=== PATIENT | male | born 1980 | race Caucasian/White ===

== ENCOUNTER 2023-10-03 05:42 | Emergency (ER) | payer BC, SELFPAY ==
[2023-10-03] VITALS (10 sets, daily range): BP systolic 137–166; BP diastolic 85–111; BMI 37.4
--- NOTE | 2023-10-03 06:11 | EDRN ---
Pt woke with chest tightness and head pressure so he took his blood pressure and it was 165/113 which prompted this ED visit. Pt thinks he forgot his 10mg lisinopril last night. Pt took his morning 20mg lisinopril and prozac 40mg. Pt denies abd
pain, dizziness, weakness, visual disturbance, n/v, fever/chills. Pt says he has a cough occasionally.
--- NOTE | 2023-10-03 07:04 | ED.GENMED ---
History of Present Illness
<Denise Phillips MD, Resident - Last Filed: 10/03/23 12:09>
General
Chief Complaint: Blood Pressure Problem
Source: patient
Exam Limitations: none
Time Seen by Provider: 10/03/23 06:25
Nursing documentation reviewed up to this point in time: agreed with
History of Present Illness
History of Present Illness:
Patient reports SOB and mild chest tightness since this morning on his way to work. Lasted around 1 hour. Took BP at home and was ~160/110. Believes he did not take his lisinopril 10 mg last night but did take lisinopril 20 mg and Prozac 40 mg this
AM. Reports no headaches, LOC, change in vision, radiating pain, numbness or tingling. Does report mild pressure in head and chest, SOB and elevated HR.
If applicable-neuro sx onset
Onset of symptoms known: Yes
Date of onset of symptoms: 10/03/23
Past History
<Denise Phillips MD, Resident - Last Filed: 10/03/23 12:09>
Past History
ED Past Medical History: HTN and Psychiatric (anxiety)
Patient has exhibited threatening behavior?: No
Social History
Tobacco: Smoker
Employment: Employed
Review of Systems
<Denise Phillips MD, Resident - Last Filed: 10/03/23 12:09>
Review of Systems
Constitutional: Reports no symptoms
EENT: Reports no symptoms
Respiratory: Reports cough (mild, intermittent )
Cardiac: Reports other (mild chest tightness and SOB)
ABD/GI: Reports no symptoms
: Reports no symptoms
Musculoskeletal: Reports no symptoms
Skin: Reports no symptoms
Neurological: Reports no symptoms
Endocrine: Reports no symptoms
Hematologic/Lymphatic: Reports no symptoms
Psychiatric: Reports anxiety
Phy Exam
<Denise Phillips MD, Resident - Last Filed: 10/03/23 12:09>
General Physical Exam
General Presentation: well appearing and no apparent distress
General age: appears stated age
General Mental: alert
General Hydration: appears well hydrated
Eye Exam
Eye Exam: conjunctiva normal, visual acuity normal and visual rogel normal
Cardiovascular Exam
Cardiovascular Exam: regular rate/rhythm, no edema, no gallop, no JVD, no murmur and tachycardia
Heart Sounds: normal
Pulmonary Exam
Pulmonary Exam: lungs clear, no respiratory distress, no rales, chest non tender, no crackles, no rhonchi, no stridor, no wheezing and no cough
Skin Exam
Skin Exam: normal color
Psychiatric Exam
Psychiatric Exam: normal mood/affect and anxious
Scores
<Denise Phillips MD, Resident - Last Filed: 10/03/23 12:09>
Heart Score for Chest Pain Patients
STEMI patient?: No
History: Slightly or Non-Suspicious
ECG: Normal
Age: </= 45 years
Risk Factors: 1 or 2 Risk Factors
Troponin: </= Normal Limit
Heart Score for Chest Pain Patients: 1
Heart Score Risk: 2.5% MACE over next 6 weeks
Course
<Denise Phillips MD, Resident - Last Filed: 10/03/23 12:09>
Orders/Labs/Results
Orders:
Orders
10/03/23
Electrocardiogram (*1) Stat
Reason for Study: Chest Pain
Comment: DONE
10/03/23 05:48
Electrocardiogram (*1) Urgent
Reason for Study: Chest Pain
EKG- Treatment ONCE
10/03/23 07:05
IV [INT (Intravenous Needle Therapy)] As Directed
Pulse Ox/cont/shift [RESP] Stat
Quantity: 1
10/03/23 07:52
Complete Blood Count/With Diff Urgent
Comprehensive Metabolic Panel Urgent
D-Dimer Urgent
Magnesium Urgent
Troponin I Urgent
10/03/23 10:38
Troponin I Q3H
Abnormal Lab Results
10/03/23
07:52
MCH 26.7 L pg
(27.0-31.0)
MCHC 32.0 L g/dL
(33.0-37.0)
Abs Immat Gran (auto) 0.1 H 10^3/uL
(0-0.05)
Absolute Neuts (auto) 7.6 H 10^3/uL
(1.4-6.5)
Lymphocytes % 18.4 L %
(20.5-51.1)
Glucose 109 H mg/dl
(70-99)
10/03/23 07:52
10/03/23 07:52
Vital Signs
Initial and Last Documented VS:
Initial Vital Signs
Temp Pulse Resp BP Pulse Ox
98.2 F 110 20 166/111 98
10/03/23 05:43 10/03/23 05:43 10/03/23 05:43 10/03/23 05:43 10/03/23 05:43
Last Documented Vital Signs
Temp Pulse Resp BP Pulse Ox
98.2 F 98 17 152/90 94
10/03/23 05:43 10/03/23 12:00 10/03/23 12:00 10/03/23 10:20 10/03/23 12:00
<Maulik Garcia, DO - Last Filed: 10/03/23 07:42>
Orders/Labs/Results
Orders:
Orders
10/03/23
Electrocardiogram (*1) Stat
Reason for Study: Chest Pain
Comment: DONE
10/03/23 05:48
Electrocardiogram (*1) Urgent
Reason for Study: Chest Pain
EKG- Treatment ONCE
10/03/23 07:05
IV [INT (Intravenous Needle Therapy)] As Directed
Pulse Ox/cont/shift [RESP] Stat
Quantity: 1
10/03/23 07:52
Complete Blood Count/With Diff Urgent
Comprehensive Metabolic Panel Urgent
D-Dimer Urgent
Magnesium Urgent
Troponin I Urgent
10/03/23 10:38
Troponin I Q3H
Abnormal Lab Results
10/03/23
07:52
MCH 26.7 L pg
(27.0-31.0)
MCHC 32.0 L g/dL
(33.0-37.0)
Abs Immat Gran (auto) 0.1 H 10^3/uL
(0-0.05)
Absolute Neuts (auto) 7.6 H 10^3/uL
(1.4-6.5)
Lymphocytes % 18.4 L %
(20.5-51.1)
Glucose 109 H mg/dl
(70-99)
10/03/23 07:52
10/03/23 07:52
Vital Signs
Initial and Last Documented VS:
Initial Vital Signs
Temp Pulse Resp BP Pulse Ox
98.2 F 110 20 166/111 98
10/03/23 05:43 10/03/23 05:43 10/03/23 05:43 10/03/23 05:43 10/03/23 05:43
Last Documented Vital Signs
Temp Pulse Resp BP Pulse Ox
98.2 F 98 17 152/90 94
10/03/23 05:43 10/03/23 12:00 10/03/23 12:00 10/03/23 10:20 10/03/23 12:00
<Denise Phillips MD, Resident - Last Filed: 10/03/23 12:09>
MDM/Problems Addressed
Differential Diagnosis Includes:
STEMI, angina, Pulmonary embolism, anxiety, dissection
MDM/Problems Addressed:
43 YO M presented to ED with chest tightness and head pressure this morning with elevated BP. Reported missing one dose of lisinopril last night. EKG, CBC, CMP, Troponin and D-dimer were all normal.
Chronic conditions affecting care: HTN
Acute Exacerbation and/or Progression of Chronic Illness: HTN
<Denise Phillips MD, Resident - Last Filed: 10/03/23 12:09>
*EKG
Interpreted by ED Provider?: Yes
EKG Intrepretation Date: 10/03/23
Interpretation: normal
Rate: tachycardiac
Rhythm: sinus
[place]: normal axis
QRS Pattern: normal QRS
*Critical Care Note
Total Time (30-74mins, 75-104mins- exclusive of procedures): Not Applicable
ED Attending Note
<Denise Phillips MD, Resident - Last Filed: 10/03/23 12:09>
-
Portions of this chart may have been created with voice recognition software.� Occasional wrong word or��sound alike� substitutions may have occurred due to the inherent limitations of voice recognition software.
<Maulik Garcia DO - Last Filed: 10/03/23 07:42>
ED Attending Note
Patient seen and examined by attending physician: Yes
I performed a history and physical exam of patient and discussed management with resident, I reviewed resident's note and agree with documented findings and plan of care.: Yes
ED Attending Note:
I have reviewed and agree with his and treatment plan by Denise Phillips DO. My exam revealed
Physical Exam
General: no apparent distress, not acutely ill
Neck: supple. no meningeal signs. normal posterior pharynx
Heart: s1/s2 regular rate and rhythm, no murmur. equal radial
pulses.
HEENT: Pupils equal round reactive to light, EOMI
Lungs: no acute respiratory distress. clear bilaterally
Abdomen: normal bowel sounds. not tender. no CVAT
Neuro: alert and oriented. no focal neurological deficits cranial nerves II through XII intact
Skin: no rash
Psychiatric: well kept. interactive and cooperative
Extremities: no edema. no calf tenderness. negative homans. good distal pulses
43-year-old male with chest pain, chest tightness, shortness of breath and tachycardia. Blood pressure improved. I will check troponin D-dimer.
Discharge Plan
Departure
Patient Disposition: Home (Routine Discharge)
Date of Disposition: 10/03/23
Time of Disposition: 11:37
Patient with high blood pressure during this ER visit?: Yes
Condition: Good
Discharge Problem:
Chest pain
Instructions: Chest Pain PCP Follow Up, BLOOD PRESSURE
Prescriptions:
No Action
fluoxetine [Prozac] 40 mg Capsule
40 mg PO DAILY
lisinopril 20 mg Tablet
20 mg PO DAILY
alprazolam [Xanax] 0.5 mg Tablet
0.5 mg PO BID PRN (Reason: anxiety)
lisinopril 10 mg Tablet
10 mg PO HS
Referrals:
Jordan Cruz CRNP [Family Provider] - Call in 1-3 days for appt
Interventions
Interventions:
*Risk Screen - Suicide Last Done: 10/03/23 05:43
*General Assessment Last Done: 10/03/23 05:43
*Neglect/Abuse Screening Last Done: 10/03/23 05:43
*ED COVID-19 Vaccine History Last Done: 10/03/23 05:56
*Nursing Disposition Last Done: 10/03/23 12:06
ED- Cardiac Assessment Last Done: 10/03/23 06:08
ED- Neurological Assessment Last Done: 10/03/23 06:08
ED- Pulmonary Assessment Last Done: 10/03/23 06:08
Discharge Date and Time
Discharge Date/Time: 10/03/23 12:06
Print Language: [place]
[2023-10-03 08:09] LABS: % Basophils 0.3 % (0-2); % Eosinophils 1.1 % (0-6); % Immature Granulocytes 0.5 % (0-0.5); % Lymphocytes 18.4 % (20.5-51.1); % Monocytes 6.2 % (1.7-9.3); % Neutrophils 73.5 % (42.2-75.2); Absolute Eosinophils 0.1 10^3/uL (0-0.7); Absolute Immature Granulocytes 0.1 10^3/uL (0-0.05); Absolute Lymphocytes 1.9 10^3/uL (1.2-3.4); Absolute Monocytes 0.6 10^3/uL (0.1-0.6); Absolute Neutrophils 7.6 10^3/uL (1.4-6.5); Hematocrit 41.9 % (39.0-52.0); Hemoglobin 13.4 g/dL (13.0-18.0); Mean Corpuscular Hgb 26.7 pg (27.0-31.0); Mean Corpuscular Volume 83.5 fL (80.0-94.0); Mean Platelet Volume 9.5 fL (7.4-10.4); Nucleated Red Blood Cells % 0 % (-); Platelet Count 260 10^3/uL (130-400); Red Blood Cell Count 5.02 10^6/uL (4.70-6.10); Red Cell Dist. Width 13.1 % (11.5-14.5); White Blood Cell Count 10.4 10^3/uL (4.8-10.8)
[2023-10-03 08:22] LABS: ALT (SGPT) 22 U/L (0-50); AST (SGOT) 23 U/L (17-59); Albumin 4.5 g/dl (3.5-5.0); Alkaline Phosphatase 86 U/L (38-126); Blood Urea Nitrogen 10 mg/dl (9-20); Calcium 9.5 mg/dl (8.4-10.2); Carbon Dioxide 28 mmol/L (22-30); Chloride 102 mmol/L (98-107); Estimated Creatinine Clearance > 125 ml/min; Glucose 109 mg/dl (70-99); Magnesium 2.2 mg/dl (1.6-2.3); Potassium 4.3 mmol/L (3.5-5.1); Sodium 139 mmol/L (135-145); Total Bilirubin 0.9 mg/dl (0.2-1.3); Total Protein 7.8 g/dl (6.3-8.2); eGFR > 60.00
[2023-10-03 08:32] LABS: Troponin I < 0.012 ng/ml
[2023-10-03 08:41] LABS: D-Dimer < 0.27 ug/mlFEU (0.00-0.50)
[2023-10-03 11:17] LABS: Troponin I < 0.012 ng/ml
== END 2023-10-03 12:06 | disposition home or self-care (01) ==
LOC: EMR 05:42
PROVIDERS: EMERGENCY PHYSICIAN Emergency Medicine; FAMILY PHYSICIAN Nurse Practitioner Family
DX: R07.89 Other chest pain (principal); R06.02 Shortness of breath; R00.0 Tachycardia, unspecified; R05.9 Cough, unspecified; F41.9 Anxiety disorder, unspecified; I10 Essential (primary) hypertension; K21.9 Gastro-esophageal reflux disease without esophagitis; J45.909 Unspecified asthma, uncomplicated; F17.210 Nicotine dependence, cigarettes, uncomplicated; Z85.47 Personal history of malignant neoplasm of testis; Z88.1 Allergy status to other antibiotic agents; Z91.041 Radiographic dye allergy status
CPT/HCPCS: 99284; 80053; 83735; 84484; 85025; 85379; 93005